=== PATIENT | female | born 1990 | race Caucasian/White ===

== ENCOUNTER 2022-03-26 17:39 | Emergency (ER) | payer OTHER, SELFPAY ==
--- NOTE | ~2022-03-26 | XR_ITS ---
EXAMINATION: XR FOOT, LEFT CLINICAL INFORMATION: Pain and swelling COMPARISON: Previous x-ray April 2018 TECHNIQUE: AP, lateral, and oblique views of the left foot. FINDINGS: The bones and soft tissues are normal. No fracture. Alignment is anatomic. Joint spaces are maintained. XR/XR foot LT 2V IMPRESSION: Normal left foot.
[2022-03-26 19:27] VITALS: BP 125/82; PULSE 60; RESP 16; TEMP 36.9; O2SAT 98; BMI 41.0
--- NOTE | 2022-03-26 23:20 | ED.LOWEXIN ---
HPI - Extremity Injury (Lower) General Chief Complaint: Extremity Injury, Lower Stated Complaint: foot INJ Time Seen by Provider: 03/26/22 23:19 Source: patient Mode of arrival: ambulatory History of Present Illness HPI Narrative: 32-year-old female with no significant past medical history presenting to the ED complaining of left foot > to great toe pain/ecchymosis s/p tripping over her own feet last night. Admits to associated paresthesias. Denies crush injury/direct trauma. Denies head trauma/LOC MD complaint: foot injury Onset (ago): day(s) Related Data Allergies Allergy/AdvReac Type Severity Reaction Status Date / Time codeine [CODEINE] Allergy Unknown HIVE Unverified 08/01/20 16:03 Codeine Sulfate Allergy Unknown rash Uncoded 03/25/20 00:00 Review of Systems Review of Systems: Constitutional: No Fever, No Chills ENT/Mouth: No Ear Pain, No Nasal Congestion, No sore throat, No Rhinorrhea, No Swallowing Difficulty Cardiovascular: No Chest Pain, No SOB Respiratory: No Cough, No Sputum, No Wheezing Gastrointestinal: No Nausea, No Vomiting, No Diarrhea, No Constipation, No Abdominal pain Genitourinary: No Dysuria, No Urinary Frequency, No Hematuria, No Flank Pain Musculoskeletal: + joint pain, No Myalgias, + Joint Swelling Skin: No Skin Lesions, No rash Neuro: No Weakness, No Numbness, + Paresthesias Yes all other systems are reviewed and are negative [facility] Past Medical History Attestation statement: The following information was validated with the patient. Physical Exam Vital Signs: Vital Signs: Last Vital Signs Temp 98.5 F 03/26/22 19:27 Pulse 60 03/26/22 19:27 Resp 16 03/26/22 19:27 BP 125/82 03/26/22 19:27 Pulse Ox 98 03/26/22 19:27 BMI result Body Mass Index 41.0 Const: General: cooperative, healthy appearing and no acute distress Orientation/consciousness: patient oriented x3 Limitations: no limitations HEENT: Head: Yes normal to inspection and Yes atraumatic Ears: hearing grossly normal bilaterally General nose exam: Normal external nose present Face and sinus: Yes normal facial exam Eyes: General: appearance normal, both eyes and all related structures EOM: EOMs intact bilaterally Neck: Neck: Yes normal visual inspection and Yes no meningeal signs Resp: Effort & Inspection: normal respiratory effort and no respiratory distress Cardio: Rate: regular rate Peripheral pulses: dorsalis pedis present Skin: Rashes: no rashes Wounds: no wounds Neuro: General: patient oriented x3, tone normal and no meningeal signs Gait exam (Neuro): Normal gait present Extrem: Other: Left great toe with mild swelling and ecchymosis. Tender to palpation. Remainder of metatarsals nontender. Ankle nontender. Full range of motion to ankle intact. Neurovascularly intact. Sensation intact to light touch Course Course Course Narrative: XR foot LT 2V IMPRESSION: Normal left foot. Results discussed with patient including worrisome signs and symptoms MDM - Extremity Injury (Lower) MDM Narrative Medical decision making narrative: 32-year-old female with no significant past medical history presenting to the ED complaining of left foot > to great toe pain/ecchymosis s/p tripping over her own feet last night. On exam vital signs stable. Physical exam as above. Concern for sprain versus fracture Plan: X-rays Medical Records Attestation: I reviewed the patient's medical records. Lab Data Attestation: I reviewed the patient's lab results. Discharge Plan Discharge Clinical Impression: Foot sprain Patient Disposition: Home, Self-Care Instructions: Foot Sprain (ED) Additional Instructions: Your x-rays unremarkable. Ice. Elevate. Take Tylenol and Motrin for pain Follow-up with your doctor. Return to the ED if symptoms persist or worsen Referrals: Gabby Tran PA [Primary Care Provider] - (As needed)
== END 2022-03-26 23:51 | disposition home or self-care (01) ==
PROVIDERS: Emergency Provider Student in an Organized Health Care Education/Training Program; PCP Physician Assistant Medical
DX: S93.602A Unspecified sprain of left foot, initial encounter (principal); W01.0XXA Fall on same level from slipping, tripping and stumbling without subsequent striking against object, initial encounter; Y93.9 Activity, unspecified; Y92.9 Unspecified place or not applicable; Y99.9 Unspecified external cause status
CPT/HCPCS: 73620; 99283

== ENCOUNTER 2024-12-25 20:56 | Emergency (ER) | payer OTHER, SELFPAY ==
--- NOTE | ~2024-12-25 | XR_ITS ---
CLINICAL HISTORY: cough 2 view chest x-ray Comparison: CR/SR - CHEST 1 VIEW - 06/29/20 05:04 EDT Findings: No consolidation or effusion. Normal size heart. No acute fracture. IMPRESSION: 1. No acute findings. This document has been electronically signed by: Fernando Aguillon MD on 12/25/2024 21:57:22
[2024-12-25 21:13] VITALS: BP 152/88; PULSE 71; RESP 14; TEMP 37; O2SAT 100; BMI 42.5
[2024-12-25 23:47] LABS: Influenza A PCR NEGATIVE (Negative); Influenza B PCR NEGATIVE (Negative); Resp Syncy Virus RNA Qual PCR NEGATIVE (Negative); SARS COV2 PCR INHOUSE NEGATIVE (Negative)
--- OUTSIDE RECORDS SUMMARY | 2024-12-26 02:03 | XMS_ITS | Clinical Summary ---
Author Organization [facility] Address [address] [place] [address] Care Team Providers Care Computer Aided Design Designer Name Role Phone Michael Thomas MD Primary Care Provider [phone] Source Comments PLEASE NOTE, if this patient is a minor, it may be UNLAWFUL to discuss sensitive information that is contained in these records (such as FAMILY PLANNING, MENTAL HEALTH or SUBSTANCE ABUSE) with the minor patient's parent or other person without the patient's specific authorization.[facility] Allergies Active Allergy Reactions Criticality Noted Date Comments Codeine Hives 09/16/2022 Oxycodone-Acetaminophen Rash High 03/10/2019 Sumatriptan 07/01/2022 Lock jaw Medications loratadine (CLARITIN) 10 mg tabletIndications :Acute non-recurrent maxillary sinusitis TAKE 1 TABLET BY MOUTH ONCE DAILY NEEDED FOR ALLERGIES 30 Tablet 1 2 Active benzonatate (TESSALON) 200 mg capsuleIndication s:COVID-19,Acute cough Take 1 Capsule by mouth 3 (three) times daily as needed for cough 30 Capsule 3 Active propranoloL (INDERAL) 40 mg tabletIndications :Chronic migraine without aura without status migrainosus, not intractable Take 1 Tablet by mouth 2 (two) times daily 180 Tablet 1 4 Active PARoxetine (PAXIL) 20 mg tabletIndications :Anxiety and depression Take 1 Tablet by mouth every morning 30 Tablet 3 4 Active amitriptyline (ELAVIL) 10 mg tabletIndications :Migraine without status migrainosus, not intractable, unspecified migraine type Take 1 Tablet by mouth nightly at bedtime 30 Tablet 1 4 Active riboflavin, vitamin B2, 400 mg tabIndications:Mi graine without status migrainosus, not intractable, unspecified migraine type Take 1 Tablet by mouth daily. For migraine prevention 30 Tablet 3 4 Active hydroCHLOROthiazi de (MICROZIDE) 12.5 mg capsuleIndication s:Primary hypertension Take 1 Capsule by mouth once daily 30 Capsule 3 4 Active semaglutide, weight loss, (WEGOVY) 0.25 mg/0.5 mL pnijIndications:C lass 3 severe obesity due to excess calories with serious comorbidity and body mass index (BMI) of 40.0 to 44.9 in adult ([facility]) Inject 0.25 mg into the skin once a week 6 mL 1 5 Active Active Problems Problem Noted Date Diagnosed Date Elevated LDL cholesterol level 04/05/2024 Prediabetes 01/15/2023 Severe obesity (BMI 35.0-39.9) with comorbidity ([facility]) 07/01/2022 Chronic migraine without aur a without status migrainosus, not intractable 07/01/2022 Overview (09/18/2022): Referred to Neurology COVID-19 virus detected 04/15/2020 IUD (intrauterine device) in place 12/11/2019 Overview (12/11/2019): Placed December 01 2019 Hx of tubal ligation 10/06/2019 Overview (10/06/2019): 2014 History of shingles 10/06/2019 Overview (10/06/2019): Diagnosed in 2017 History of chickenpox 10/06/2019 Overview (10/06/2019): As child Pityriasis rosea 10/06/2019 Seizure ([facility]) 03/10/2019 Overview (03/10/2019): Per pt. Last seizure was 4 years ago with her last . Never required use of meds Anxiety and depression 03/10/2019 Resolved Problems Problem Noted Date Diagnosed Date Resolved Date Tobacco dependence due to cigarettes 03/10/2019 07/01/2022 Encounters Date Type Department Care Team Description 10/19/2024 Interim Notes [facility] [place] [phone] Abby Back RN 10/19/2024 Interim Notes [facility] [place] [phone] Makenzie Weiner PA-C Primary hypertension (Primary Dx) 10/09/2024 Interim Notes [facility] [place] [phone] Coleen Araujo MA 10/02/2024 3:40 PM EST Telemedicine Visit [facility] [place] [address] Makenzie Weiner PA-C Anxiety and depression (Primary Dx); Migraine without status migrainosus, not intractable, unspecified migraine type from Last 3 Months Immunizations Name Administration Dates Next Due DTP 06/24/1994, 2,03/15/1990,12/16,1989 Flu, Preservative Free 07/22/2022 HEP B, PED/ADOL 07/13/2000,09/20/1999,08/20/1999 HPV, QUADRIVALENT 10/12/2007 Hib (HbOC) 11/15/1991 INFLUENZA, SEASONAL, INJECTABLE 08/15/2021 INFLUENZA, SEASONAL, INJECTA BLE, PRESERVATIVE FREE 09/11/2012 IPV 06/24/1994, 2,1989,09/15 MENINGOCOCCAL MCV4P (MENACTRA) 10/12/2007 MMR (MMR II/Priorix) 08/20/1999,11/15/1991 PFIZER COVID VACCINE, PURPLE CAP, 12+ 02/05/2022 ,07/26/2021,06/27/2021 PNEUMOCOCCAL POLYSACCHARIDE PPV23 03/10/2019 TDAP 06/11/2015,10/12/2007 Td(adult),2 Lf tetanus toxoid,preservative free 09/12/2001 Social History Tobacco Use Types Packs/Day Years Used Date Smoking Tobacco: Former Passive Smoke Exposure: Never Smokeless Tobacco: Never Tobacco Cessation:Counseling Given: Yes Alcohol Use Standard Drinks/Week Comments Not Currently 0 (1 standard drink = 0.6 oz pur e alcohol) Social Connections Answer Date Recorded Connectedness 0 07/23/2024 Financial Resource Strain Answer Date R ecorded Financial Resource Strain 0 2018 Stress Answer Date Recorded Stress 0 07/10/2019 Physical Activity Answer Date Recorded Physical Activity 0 07/10/2019 Food Insecurity Answer Date Recorded Food 0 08/10/2024 Transportation Needs Answer Date Record ed Transportation 0 07/10/2019 Housing Stability Answer Date Recorded Housing 0 07/10/2019 Safety and Environment Answer Date Theodore rded Safety 1 12/03/2023 Utilities Answer Date Recorded Utilities 0 07/10/2019 Employment Answer Date Recorded Stress 0 02/02/2022 Comments No Sex and Gender Information Value Date Recorded Sex Assigned at Female 03/10/2019 7:55 AM PDT Legal Sex Female 10:28 AM PDT Gender Identity Female 03/10/2019 7:55 AM PDT Sexual Orientation Straight 03/10/2019 7: 55 AM PDT Last Filed Vital Signs Vital Sign Reading Time Taken Comments Blood Pressure 155/103 10/19/2024 1:23 PM EST Pulse 71 07/26/2024 10:47 AM EDT Temperature 36.5 ??C (97.7 ??F) 07/26/2024 10:47 AM E DT Respiratory Rate 16 07/26/2024 10:47 AM EDT Oxygen Saturation 98% 04/05/2024 9:51 AM EDT Inhaled Oxygen Concentration - - Weight 97.1 kg (214 lb) 07/26/2024 10:47 AM EDT Height 152.4 cm (5') 07/26/2024 10:47 AM EDT Body Mass Index 41.79 07/26/2024 10:47 AM EDT Plan of Treatment Health Maintenance Due Date Last Done Comments HPV Screening 1989 Pap + HPV 1989 Depression Monitoring 10/25/2024 07/26/2024 , 04/05/2024, 12/03/2023, Additional history exists Alcohol and Drug Screen 11/15/2024 12/03/19 24, 01/15/2023, 03/30/2022, Additional history exists Relationship Safety Screening/Counseling 12/03/2024 12/03/2023, 09/17/2022, 09/02/2021, Additional history exists Annual Preventive Care Visit 01/05/2025 01/05/2024, 09/17/2022 Diabetes Screening 01/05/2025 01/05/2024, 0 01/05/2024, 01/15/2023, Additional history exists Deq-PMHNA-24 ( season) 2025 02/05/2022, 07/26/2021, 06/27/2021 Postponed from 07/16/2024 (Patient postponement) Tobacco Screening 04/05/2025 04/05/2024, 03/10/2019 Imm-Influenza (#1) 2025 07/22/2022, 1 , 09/11/2012 Postponed from 07/16/2024 (Follow up visit) Imm-DTaP/Tdap/Td (8 - Td or Tdap) 06/11/2025 06/11/2015, 10/12/2007, 09/12/2001, Additional history exists Cervical Cancer Screening 12/21/2025 Pap Smear 12/21/2025 12/21/2022, 02/13/2018 Lipid Screening 04/05/2027 04/05/2024, 12/17, 09/17/2022, Additional history exists Imm-Hepatitis B Completed 07/13/2000, 04/1999, 08/20/1999 Hepatitis C Screening Completed 09/17/2022 HIV Screening Completed 10/23/2022, 06/24/2020 Cervical Ablation/Cold-Knife Conization Discontinued Cervical Cryotherapy Discontinued Colposcopy Discontinued Endometrial Biopsy Discontinued Excision/Leep Discontinued HPV Genotyping Discontinued Vaginal Pap Discontinued Vulvoscopy Discontinued Procedures Procedure Name Priority Date/Time Associated Diagnosis Comments LIPIDS W RFLX TO DIRECT LDL Routine 04/05/2024 10:31 AM EDT Elevated LDL cholesterol level COMPREHENSIVE METABOLIC PANEL Routine 01/05/2024 9:41 AM EST Routine general medical examination at a health care facility Prediabetes Other specified anxiety disorders Chronic migraine without aura without status migrainosus, not intractable Class 3 severe obesity due to excess calories without serious comorbidity with body mass index (BMI) of 40.0 to 44.9 in adult ([facility]) PAP SMEAR 12/21/2022 3:00 AM EST HIV 1/2 AG & AB W/RFLX (4TH GEN) Routine 10/23/2022 9:17 AM EST Unprotected sex Screening examination for venereal disease HEPATITIS C AB W/RFLX HCV RNA, QT, RT PCR Routine 09/17/2022 9:29 AM EDT Health care maintenance from Last 3 Months or Most Recently Relevant to Health Maintenance Results * LIPIDS W RFLX TO DIRECT LDL (04/05/2024 10:31 AM EDT) CHOLESTEROL, TOTAL 175 <200 mg/dL [facility] HDL CHOLESTEROL 61 > OR = 50 mg/dL [facility] TRIGLYCERIDES 97 <150 mg/dL [facility] LDL-CHOLESTEROL 95 99 mg/dL (calc) [facility] Comment: Reference range: <100 Desirable range <100 mg/dL for primary prevention; ?? <70 mg/dL for patients with CHD or diabetic patients with > or = 2 CHD risk factors. LDL-C is now calculated using the Goyo-Araiza calculation, which is a validated novel method providing better accuracy than the Friedewald equation in the estimation of LDL-C. Goyo RAMOS et al. MARYA. 2013;310(19): 2871-3630 (http://education.CREATIV.COM.SquareOne/faq/TUM514) CHOL/HDLC RATIO 2.9 <5.0 (calc) [facility] NON-HDL CHOLESTEROL 114 <130 mg/dL (calc) [facility] Comment: For patients with diabetes plus 1 major ASCVD risk factor, treating to a non-HDL-C goal of <100 mg/dL (LDL-C of <70 mg/dL) is considered a therapeutic option. Blood Blood / Unknown 04/05/2024 1 0:31 AM EDT 04/05/2024 10:31 AM EDT us Michael Thomas MD LAB - BLOOD DRAW Final Result [facility] [address] [address], [employer] [facility] [address] [place] [address] * (ABNORMAL) COMPREHENSIVE METABOLIC PANEL (01/05/2024 9:41 AM EST) GLUCOSE 113(H) 65 - 99 mg/dL [employer] [facility] Comment: ?Fasting reference interval For someone without known diabetes, a glucose value between 100 and 125 mg/dL is consistent with prediabetes and should be confirmed with a follow-up test. UREA NITROGEN (BUN) 12 7 - 25 mg/dL [employer] [facility] CREATININE (blood) 0.88 0.50 - 0.97 mg/dL [employer] [facility] EGFR 88 > OR = 60 mL/min/1. 73m2 [employer] [facility] BUN/CREATININE RATIO SEE NOTE: [employer] [facility] Comment: ?? Not Reported: BUN and Creatinine are within ?? reference range. ? SODIUM 139 135 - 146 mmol/L [employer] [facility] POTASSIUM 4.2 3.5 - 5.3 mmol/L [employer] [facility] CHLORIDE 104 98 - 110 mmol/L [employer] [facility] CARBON DIOXIDE 28 20 - 32 mmol/L [employer] [facility] CALCIUM 9.4 8.6 - 10.2 mg/dL [employer] [facility] PROTEIN, TOTAL 7.1 6.1 - 8.1 g/dL [employer] [facility] ALBUMIN 4.3 3.6 - 5.1 g/dL [employer] [facility] GLOBULIN 2.8 1.9 - 3.7 g/dL (calc) [employer] [facility] ALBUMIN/GLOBULI N RATIO 1.5 1.0 - 2.5 (calc) [employer] [facility] BILIRUBIN, TOTAL 0.5 0.2 - 1.2 mg/dL [employer] [facility] ALKALINE PHOSPHATASE 70 31 - 125 U/L [employer] [facility] AST 13 10 - 30 U/L [employer] [facility] ALT 15 6 - 29 U/L [employer] [facility] Blood Blood / Unknown 01/05/2024 9 :41 AM EST 01/05/2024 9:42 AM EST Narrative [facility] - 01/06/2024 11:01 AM EST FASTING:YES Michael Thomas MD LAB - BLOOD DRAW Final Result Performing Organization Address City/[facility]/ZIP Co de Phone Number [employer] [address] [address], [employer] [address] [phone] * PAP SMEAR (12/21/2022 3:00 AM EST) 12/21/2022 3:00 AM EST Michael Thomas MD LAB - NO BLOOD DRAW Final Resul t * HIV 1/2 AG & AB W/RFLX (4TH GEN) (10/23/2022 9:17 AM EST) HIV AG/AB, 4TH GEN NON-REAC TIVE NON-REAC TIVE [employer] [facility] Comment: HIV-1 antigen and HIV-1/HIV-2 antibodies were not detected. There is no laboratory evidence of HIV infection. PLEASE NOTE: This information has been disclosed to you from records whose confidentiality may be protected by state law. ??If your state requires such protection, then the state law prohibits you from making any further disclosure of the information without the specific written consent of the person to whom it pertains, or as otherwise permitted by law. A general authorization for the release of medical or other information is NOT sufficient for this purpose. ?? For additional information please refer to http://education.STEGOSYSTEMS.SquareOne/faq/DUF296 (This link is being provided for informational/ educational purposes only.) The performance of this assay has not been clinically validated in patients less than 2 years old. Blood Blood / Unknown 10/23/2022 9 :17 AM EST 10/23/2022 9:18 AM EST Makenzie Weiner PA-C LAB - BLOOD DRAW Final Resul t Performing Organization Address City/[facility]/ZIP Co de Phone Number [employer] [address] [address], [employer] [address] [address] * HEPATITIS C AB W/RFLX HCV RNA, QT, RT PCR (09/17/2022 9:29 AM EDT) HEPATITIS C ANTIBODY NON-REACT EDUARDO NON-REACT EDUARDO [facility] SIGNAL TO CUT-OFF 0.04 <1.00 [facility] Comment: HCV antibody was non-reactive. There is no laboratory evidence of HCV infection. In most cases, no further action is required. However, if recent HCV exposure is suspected, a test for HCV RNA (test code 79780) is suggested. For additional information please refer to http://education.[employer]/faq/YQN09o5 (This link is being provided for informational/ educational purposes only.) Blood Blood / Unknown 09/17/2022 9 :29 AM EDT 09/17/2022 9:29 AM EDT Narrative [facility] - 09/18/2022 12:26 AM EDT FASTING:YES Michael Thomas MD LAB - BLOOD DRAW Edited Result - Final [employer] [address] [address], [employer] [address] [place] [address] from Last 3 Months or Most Recently Relevant to Health Maintenance Insurance [place] MEDICA[place] D[facility] [facility] NET DENTAL [facility] [place] [address] Member Subscriber Plan / Payer (Ef fective 2023-Present) Name:Aleta Quesada Relation to Subscriber:Self Name:Aleta Quesada Payer ID:[id number] Group ID:Not on file Type:[employer] Address: [address] [place] [id number] Care Teams Computer Aided Design Designer Relationship Specialty Start Date End Date Michael Thomas MD [address] [place] [address] PCP - General Internal Medicine 11/19/22
[2024-12-26 02:09] VITALS: BP 158/101; PULSE 74; RESP 16; TEMP 36.8; O2SAT 100
--- NOTE | 2024-12-26 02:09 | PC.NURSE ---
pt is hypertensive, did not take her medication today. Provider aware.
--- NOTE | 2024-12-26 03:13 | ED.GENADULT ---
HPI - General Adult General Chief complaint: Upper Respiratory Symptoms Stated complaint: Chest burning , ? pneumonia Time Seen by Provider: 12/26/24 02:56 Source: patient Limitations: no limitations History of Present Illness ED Provider: Vanesa Jackson PA-C HPI narrative: 34-year-old female presents with ongoing bronchospasm type cough x2 weeks. Patient states she is just getting over her associated laryngitis. The cough is persistent, causing her to gag and vomit. Denies fever, productivity of the cough, history of asthma or tobacco use. Related Data Previous Rx's ?Medication ?Instructions ?Recorded amoxicillin 875 mg-potassium 1 tab PO BID #20 tabs 11/21/24 clavulanate 125 mg tablet ibuprofen 600 mg tablet 600 mg PO Q6H PRN fever or pain 11/21/24 #30 tabs albuterol sulfate 90 mcg/actuation 2 puff inhalation Q4-6H PRN 12/26/24 aerosol inhaler bronchospasm #6.7 grams prednisone 20 mg tablet 40 mg (2 x 20 mg) PO DAILY #8 tabs 12/26/24 Allergies Allergy/AdvReac Type Severity Reaction Status Date / Time codeine [CODEINE] Allergy Unknown HIVE Verified 12/25/24 21:16 Codeine Sulfate Allergy Unknown rash Uncoded 12/25/24 21:16 Review of Systems Review of Systems: Yes all other systems are reviewed and are negative Constitutional: Constitutional: Denies fatigue and Denies fever(s) Cardiovascular: Cardiovascular: Denies chest pain and Denies dyspnea Respiratory: Respiratory: Denies chest congestion, Reports cough, Denies dyspnea and Denies wheezing Endocrine: Endocrine: Denies fatigue Allergic/Immunologic: Allergic/Immunologic: Denies wheezing [facility] Past Medical History Attestation statement: The following information was validated with the patient. Social History Social History Advance Directives: No Do you have a plan to hurt others: No Plan Physical Exam ED Vital Signs: Vital Signs - 24 hr 12/25/24 21:13 12/26/24 02:09 Temperature 98.6 F 98.2 F Pulse Rate 71 74 Respiratory Rate 14 16 Blood Pressure 152/88 H 158/101 H Pulse Oximetry 100 100 Oxygen Delivery Method Room Air Room Air BMI result Body Mass Index 42.5 Const Other: Alert Orientation/consciousness: patient oriented x3 Resp Other: Nonlabored respirations, lungs clear to auscultation, active bronchospasm type cough Cardio Other: Normal peripheral perfusion Skin Other: Warm dry no rash Neuro General: patient oriented x3, no focal motor deficits and CN's II-XI intact bilaterally Psych Other: Calm cooperative Medical Decision Making Medical Decision Making MDM Narrative: 34-year-old female presents with ongoing bronchospasm type cough x2 weeks. Patient states she is just getting over her associated laryngitis. The cough is persistent, causing her to gag and vomit. Denies fever, productivity of the cough, history of asthma or tobacco use. No relevant chronic issues History: Per patient I have considered the following differential diagnoses: Asthma/COPD exacerbation, bronchitis, pneumonia, viral syndrome, bronchospasm Plan: Viral panel and chest x-ray obtained from triage everything is negative. Patient is having persistent bronchospasm. We will send With a steroid burst and inhaler. I have independently reviewed the following tests: Labs: Viral panel negative Chest x-ray:Findings: No consolidation or effusion. Normal size heart. No acute fracture. IMPRESSION: 1. No acute findings. This document has been electronically signed by: Fenrando Aguillon MD on 12/25/2024 21:57:22 Lab Data Labs: Lab Results 12/25/24 Range/Units 23:05 Influenza Type A (PCR) NEGATIVE (Negative) Influenza Type B (PCR) NEGATIVE (Negative) RSV RNA Qual (PCR) NEGATIVE (Negative) SARS-CoV-2 RNA (RT-PCR) NEGATIVE (Negative) Discharge Plan Discharge Clinical Impression: Bronchospasm Patient Disposition: Home, Self-Care Instructions: Bronchospasm (ED) Additional Instructions: You are being treated for a bronchospasm type cough. See home care instructions. Use the inhaler as needed, take the steroid as directed. You received a 1st dose in the ER, do not start taking it until tomorrow morning. Follow up with your primary care provider as needed. To note you were screened for influenza RSV and COVID, the viral panel was negative. The chest x-ray is clear. Prescriptions: New albuterol sulfate 90 mcg/actuation HFA aerosol inhaler 2 puff inhalation Q4-6H PRN (Reason: bronchospasm) Qty: 6.7 0RF prednisone 20 mg tablet 40 mg PO DAILY Qty: 8 0RF No Action ibuprofen 600 mg tablet 600 mg PO Q6H PRN (Reason: fever or pain) Qty: 30 0RF amoxicillin-pot clavulanate 875-125 mg tablet 1 tab PO BID Qty: 20 0RF Print Language: Syriac
[2024-12-26] MEDS: predniSONE 20 MG TABLET 40 MG PO (03:22)
[2024-12-26 03:24] VITALS: O2SAT 96
--- NOTE | 2024-12-26 03:29 | PC.NURSE ---
Reviewed discharge instructions with pt, pt verbalized understanding no sign of respiratory distress upon discharge, pt had a steady gait.
[2024-12-26 03:32] VITALS: BP 156/90; PULSE 74; RESP 16; TEMP 36.8; O2SAT 96
== END 2024-12-26 03:33 | disposition home or self-care (01) ==
PROVIDERS: Emergency Provider Internal Medicine; PCP Physician Assistant
DX: R07.89 Other chest pain (principal); J98.01 Acute bronchospasm; Z03.818 Encounter for observation for suspected exposure to other biological agents ruled out
CPT/HCPCS: 0241U; 71046; 99283; 99284

== ENCOUNTER → 2024-12-25 21:20 | Outpatient (BNV) | payer OTHER, SELFPAY | PROVIDERS: PCP Physician Assistant; Visit Provider Radiology Diagnostic Radiology | DX: R05.9 Cough, unspecified (principal) | CPT/HCPCS: 71046 ==